=== PATIENT | male | born 2000 | race Caucasian/White ===

== ENCOUNTER 2021-11-06 17:44 | Emergency (ER) | payer BC, SELFPAY ==
[2021-11-06 17:53] VITALS: BP 148/81; PULSE 87; RESP 16; TEMP 37.4; O2SAT 100
--- NOTE | 2021-11-06 18:03 | ED.WOUNDLAC ---
HPI - Wound/Laceration General Chief Complaint: Wound/Laceration Stated Complaint: spider bite Time Seen by Provider: 11/06/21 18:25 Source: patient Mode of arrival: ambulatory Limitations: no limitations History of Present Illness HPI narrative: 21-year-old male presented for complaint of possible insect bite to the right posterior upper thigh, first noted this morning. He states is gotten bigger throughout the day. The area has a blackhead in the center, surrounded by redness, and he endorses tenderness with palpation. He states he was biking [place] the [place] yesterday and suspects it was a spider. He denies removing a tick. Denies nausea, vomiting, fevers or chills. Denies any other locations of lesions. Related Data Allergies Allergy/AdvReac Type Severity Reaction Status Date / Time Penicillins Allergy Mild Hives Verified 11/06/21 17:56 Review of Systems Review of Systems: CONSTITUTIONAL: Denies body aches, fever, chills, or sweats. CARDIOVASCULAR: Denies chest pain, palpitations, or edema. RESPIRATORY: Denies cough or dyspnea. SKIN: reports leg wound MUSCULOSKELETAL: Denies back pain, joint pain, or myalgia. NEUROLOGIC: Denies headache, numbness, tingling, or weakness. PSYCH: Denies depression or anxiety. PMFSH Comments At time of signature, I have reviewed and agree with nursing past medical, surgical, social and family history unless otherwise noted. Please see nursing chart for further information. There is no relevant family history pertinent to the presenting complaint Exam Narrative: GENERAL: Well-appearing ENT: Mucous membranes moist. Oropharynx without edema, erythema or lesions. NECK: Supple. No lymphadenopathy CHEST: Clear to auscultation. No respiratory distress. HEART: Regular rate and rhythm. SKIN: Warm, dry. Right posterior upper thigh with erythema approx 2cm diameter surrounding a 3mm black center, no fluctuance or active drainage, tender to touch. NEURO: Alert and oriented x3. PSYCH: Normal mood and affect Course Course Emergency Course: Patient is aware of diagnosis, understands and agrees to treatment plan. Anticipatory guidance given. Patient agrees to follow-up as directed and is aware of reasons to seek care at the emergency department. Portions of this record may have been created with voice recognition software Level of Care: Express Care Visit Vital Signs Vital signs: Vital Signs Temperature 99.3 F 11/06/21 17:53 Pulse Rate 87 06/19/22 17:53 Respiratory Rate 16 11/06/21 17:53 Blood Pressure 148/81 H 11/06/21 17:53 Pulse Oximetry 100 11/06/21 17:53 Oxygen Delivery Room Air 11/06/21 17:53 Temperature 99.3 F 11/06/21 17:53 Pulse Rate 87 11/06/21 17:53 Respiratory Rate 16 11/06/21 17:53 Blood Pressure 148/81 H 11/06/21 17:53 Pulse Oximetry 100 11/06/21 17:53 Oxygen Delivery Room Air 11/06/21 17:53 Reviewed MDM - Wound/Laceration MDM Narrative Medical decision making narrative: Skin lesion to the posterior thigh is firm and non-fluctuant, no I&D at this time, advised supportive treatments and abx. Aware of signs and symptoms to go to the ER. V/u. Differential Diagnosis Differential diagnosis: Likely abscess, abrasion and other (cellulitis, urticaria, dermatitis) Discharge Plan Discharge Clinical Impression: Abscess Patient Disposition: Home, Self-Care Condition: Stable Instructions: Antibiotic Form Additional Instructions: Keep the area clean and dry - cleanse with warm water and mild soap and allow to fully dry. Ok to apply neosporin to the site Keep it open to air (no bandages) Warm compresses at least 3 times a day Watch for worsening symptoms including pain, redness, swelling, streaking, pus/drainage, fever. Go to the ER with any of these symptoms or concerns. Follow up with primary care provider in 1 week as needed. Prescriptions: New doxycycline hyclate 100 mg tablet 100 mg PO BID 7 Days
== END 2021-11-06 18:37 | disposition home or self-care (01) ==
PROVIDERS: Emergency Provider Nurse Practitioner Family; PCP Pediatrics Adolescent Medicine
DX: L02.415 Cutaneous abscess of right lower limb (principal)
CPT/HCPCS: 99213; G0463

== ENCOUNTER 2021-11-07 06:04 | Emergency (ER) | payer BC, SELFPAY ==
[2021-11-07 06:13] VITALS: BP 145/76; PULSE 87; RESP 17; TEMP 36.8; O2SAT 100
--- NOTE | 2021-11-07 06:31 | ED.SKABFB ---
HPI - Skin/Abscess/Foreign Bdy General Chief complaint: Skin/Abscess/Foreign Body Stated complaint: Spider bite back of right thigh Time Seen by Provider: 11/07/21 06:17 History of Present Illness HPI narrative: 21-year male presents emergency room accompanied by his mom and dad. Patient presents secondary to what they presumed was some type of insect or spider bite to the posterior aspect of the right upper thigh. This happened approximately 36 hours ago. Yesterday went over to an urgent care because the area got red surrounding it and was put on a prescription for doxycycline but only taken one of them at this point. Overnight is gotten markedly larger and now having a red streak this running around the medial aspect of the thigh. He had no chills or fevers. Never anything like this before. Related Data Allergies Allergy/AdvReac Type Severity Reaction Status Date / Time Penicillins Allergy Mild Hives Verified 11/07/21 06:16 Review of Systems Review of Systems: CONSTITUTIONAL: Denies fever, chills, or sweats. EYES: Denies visual changes, redness, or discharge. ENT: Denies rhinorrhea, congestion, sore throat, or otalgia. CARDIOVASCULAR: Denies chest pain, palpitations, or edema. RESPIRATORY: Denies cough or dyspnea. GASTROINTESTINAL: Denies abdominal pain, nausea, vomiting, or diarrhea. GENITOURINARY: Denies dysuria or hematuria. SKIN: As per HPI is got a red area on the posterior aspect of his right thigh extending around medially MUSCULOSKELETAL: Denies back pain, joint pain, or myalgia. NEUROLOGIC: Denies headache, numbness, or weakness. PSYCHIATRIC: Denies anxiety or depression. PMFSH Past Medical History Medical History No pertinent past medical history Social History Social History Living arrangements: with family Occupation/Education: student Exam Narrative: APPEARANCE: Well appearing, no pain or distress, well-nourished. Head normocephalic and atraumatic. EYES: PERRLA/EOMI, conjunctivae very clear. NOSE: Normal with no drainage EARS:TMS clear Sera Burch, with good light reflex. THROAT: Pharynx clear, no exudate. NECK: Supple. No adenopathy, no masses. RESPIRATORY: Airway patent, respirations nonlabored. Clear to auscultation bilaterally, no rales, rhonchi, wheezing. CARDIOVASCULAR: Regular rate and rhythm without murmurs, rubs, or gallops. ABDOMINAL: Soft, nontender, nondistended, no hepatosplenomegaly Musculoskeletal: Moves all extremities. Strength/ROM intact, No edema, No calf tenderness. NEURO: Alert. Cranial nerves II through XII intact. Normal gait. Good coordination. Nonfocal examination. SKIN:: Posterior aspect of the right thigh there is an area for approximately 2 to 3 cm in diameter that is erythematous. There is a little excoriation in his central portion of that. There is an erythematous streak this running around the medial aspect of his thigh. There is no fluctuance or purulent drainage. PSYCHIATRIC: Normal affect/mood, normal interaction Course Vital Signs Vital signs: Vital Signs Temperature 98.3 F 11/07/21 06:13 Pulse Rate 87 11/07/21 06:13 Respiratory Rate 17 11/07/21 06:13 Blood Pressure 145/76 H 11/07/21 06:13 Pulse Oximetry 100 11/07/21 06:13 Oxygen Delivery Room Air 11/07/21 06:13 Temperature 98.3 F 11/07/21 06:13 Pulse Rate 87 11/07/21 06:13 Respiratory Rate 17 11/07/21 06:13 Blood Pressure 145/76 H 11/07/21 06:13 Pulse Oximetry 100 11/07/21 06:13 Oxygen Delivery Room Air 11/07/21 06:13 MDM - Skin/Abscess/Foreign Bdy MDM Narrative Medical decision making narrative: As this is progressing pretty rapidly we will go ahead and give patient 2 g of Rocephin IV. We will switch his antibiotics up and put him on Bactrim DS twice daily for 10 days. Advised warm compresses to the area. Discharge Plan Discharge Clinical Impressi
[2021-11-07] MEDS: cefTRIAXone 2 GM in SODIUM CHLORIDE 0.9% IV 100 ML 200 ML IVPB (06:41)
[2021-11-07 07:17] VITALS: BP 121/74; PULSE 86; RESP 18; O2SAT 100
== END 2021-11-07 07:19 | disposition home or self-care (01) ==
PROVIDERS: Emergency Provider Emergency Medicine; PCP Pediatrics Adolescent Medicine
DX: L03.115 Cellulitis of right lower limb (principal)
CPT/HCPCS: 96365; 99284; J0696

== ENCOUNTER 2021-11-08 15:26 | Emergency (ER) | payer BC, SELFPAY ==
[2021-11-08 15:30] VITALS: BP 147/89; PULSE 103; RESP 16; TEMP 37.2; O2SAT 99
--- NOTE | 2021-11-08 17:00 | ED.ANIMALBIT ---
HPI - Animal Bite General Chief Complaint: Animal Bite Stated Complaint: spider bite Time Seen by Provider: 11/08/21 16:02 History of Present Illness HPI narrative: 21-year-old male presents the emergency room for reevaluation of infected wound posterior right thigh. Patient was seen here yesterday diagnosed with a suspected animal bite with cellulitis. Patient was given 2 g of Rocephin and started on Bactrim. Patient states that the pain has improved but the area of erythema has increased slightly. Patient denies fever Related Data Allergies Allergy/AdvReac Type Severity Reaction Status Date / Time Penicillins Allergy Mild Hives Verified 11/08/21 15:55 Review of Systems Review of Systems: CONSTITUTIONAL: Denies fever, chills, or sweats. EYES: Denies visual changes, redness, or discharge. ENT: Denies rhinorrhea, congestion, sore throat, or otalgia. CARDIOVASCULAR: Denies chest pain, palpitations, or edema. RESPIRATORY: Denies cough or dyspnea. GASTROINTESTINAL: Denies abdominal pain, nausea, vomiting, or diarrhea. GENITOURINARY: Denies dysuria or hematuria. SKIN: Reports suspected bite to right posterior thigh MUSCULOSKELETAL: Denies back pain, joint pain, or myalgia. NEUROLOGIC: Denies headache, numbness, dizziness, or weakness. PSYCHIATRIC: Denies anxiety or depression. [facility] Past Medical History Medical History No pertinent past medical history Exam Narrative: GENERAL: Well-appearing, well-nourished, and in no acute distress. HEAD: Normocephalic, atraumatic. EYES: PERRLA and EOMI. ENT: Nares clear, no rhinorrhea or epistaxis. Mucous membranes moist. Oropharynx without tonsillar hypertrophy exudate or other lesions. Bilateral TMs pearly de guzman nonbulging NECK: Supple. No adenopathy or masses. No carotid bruits or JVD CHEST: Clear to auscultation. No respiratory distress. No wheezes rales or rhonchi HEART: Regular rate and rhythm. No murmur heard. Normal peripheral pulses. ABDOMEN: Soft, nontender, nondistended, normal active bowel sounds. EXTREMITIES: Normal range of motion. No edema. SKIN: Area of erythema and ecchymosis with a centralized 2 cm klarissa to right posterior thigh with erythema that radiates to the right anterior thigh, area is warm NEURO: No focal deficits. Alert and oriented x3. PSYCH: Normal mood and affect. Course Vital Signs Vital signs: Vital Signs Temperature 37.2 C 11/08/21 15:30 Pulse Rate 103 H 11/08/21 15:30 Respiratory Rate 16 11/08/21 15:30 Blood Pressure 147/89 H 11/08/21 15:30 Pulse Oximetry 99 11/08/21 15:30 Oxygen Delivery Room Air 11/08/21 15:30 Temperature 37.2 C 11/08/21 15:30 Pulse Rate 103 H 11/08/21 15:30 Respiratory Rate 16 11/08/21 15:30 Blood Pressure 147/89 H 11/08/21 15:30 Pulse Oximetry 99 11/08/21 15:30 Oxygen Delivery Room Air 11/08/21 15:30 Discharge Plan Discharge Clinical Impression: Cellulitis Patient Disposition: Home, Self-Care Condition: Stable Instructions: Antibiotic Form, Cellulitis (ED) Additional Instructions: Continue taking the Bactrim as prescribed. Prescriptions: No Action doxycycline hyclate 100 mg tablet 100 mg PO BID 7 Days Qty: 14 0RF sulfamethoxazole-trimethoprim [Bactrim DS] 800-160 mg tablet 1 tablet PO Q12H Qty: 20 0RF Follow-up/Referrals: Simon,Anel Garcia MD [Primary Care Provider] - Time of Disposition: 17:04
== END 2021-11-08 17:24 | disposition home or self-care (01) ==
PROVIDERS: Emergency Provider Nurse Practitioner Family; PCP Pediatrics Adolescent Medicine
DX: L03.115 Cellulitis of right lower limb (principal)
CPT/HCPCS: 99281